=== PATIENT | female | born 1970 | race Caucasian/White ===

== ENCOUNTER 2019-08-26 22:35 | Emergency (ER) | payer BC ==
[2019-08-26] MEDS ORDERED: TETANUS & DIPHTHERIA TOX,ADULT 0.5 ML VIAL ONE (23:13)
[2019-08-26] MEDS ORDERED: DOXYCYCLINE 100 MG CAP PO ONE (23:13)
[2019-08-26] MEDS ORDERED: ONDANSETRON 4 MG (ODT) TAB ONE (23:53)
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
[2019-08-27] MEDS ORDERED: LIDOCAINE 1% W/EPI 1:100,000 MDV 20 ML VIAL ONE (00:48)
[2019-08-27 02:29] VITALS: BP 149/101; TEMP 98.2; O2SAT 98
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
== END 2019-08-27 01:49 | disposition home or self-care (01) ==
LOC: ER 22:35
DX: S40.022A Contusion of left upper arm, initial encounter (principal); S80.12XA Contusion of left lower leg, initial encounter; S93.402A Sprain of unspecified ligament of left ankle, initial encounter; V94.9XXA Unspecified water transport accident, initial encounter; Y93.89 Activity, other specified; Y92.89 Other specified places as the place of occurrence of the external cause; Y99.9 Unspecified external cause status
CPT/HCPCS: 90471; 90714; 99283